=== PATIENT | male | born 1945 | race Hispanic/Latino ===

== ENCOUNTER → 2017-08-26 | Outpatient (CLI) | payer OTHER ==
[~2017-08-26] VITALS: Ht 175.3 cm; Wt 104.3 kg
[~2017-08-26] MED LIST: ASPI-1197 PO; ATEN25TA PO; ATOR40TA71 PO; FINA5TAB41 PO; ISOS30TA6 PO; LOSA25TA21 PO; METF500T6 PO; NASAL SPRAY NS; RANO10003 PO; REGADENOSON 0.4 MG/5 ML PF SYG IVP SCH; TAMS0.4C32 PO
== END | disposition home or self-care (01) ==
LOC: SHCH 12:13
PROVIDERS: ATTEND Internal Medicine Cardiovascular Disease
DX: I25.119 Atherosclerotic heart disease of native coronary artery with unspecified angina pectoris (principal)
CPT/HCPCS: 78452; 93017; 96374; A9500 ×2; J2785

== ENCOUNTER → 2018-05-25 | Outpatient (CLI) | payer OTHER ==
[~2018-05-25] MED LIST changes: +LOSA25TA16 PO; -LOSA25TA21 PO; +METF-444 PO; -METF500T6 PO; -REGADENOSON 0.4 MG/5 ML PF SYG IVP SCH
== END | disposition home or self-care (01) ==
LOC: RAH 09:57
PROVIDERS: ATTEND Emergency Medicine Emergency Medical Services
DX: R13.10 Dysphagia, unspecified (principal); Z79.899 Other long term (current) drug therapy; Z72.89 Other problems related to lifestyle
CPT/HCPCS: 74230; 92611; G8996; G8997; G8998

== ENCOUNTER → 2020-06-24 | Outpatient (CLI) | payer OTHER ==
[~2020-06-24] MED LIST changes: -LOSA25TA16 PO; +LOSA25TA41 PO; +REGADENOSON 0.4 MG/5 ML PF SYG IVP SCH
== END | disposition home or self-care (01) ==
LOC: SHCH 08:21
PROVIDERS: ATTEND Internal Medicine Cardiovascular Disease
DX: I25.10 Atherosclerotic heart disease of native coronary artery without angina pectoris (principal)
CPT/HCPCS: 78452; 93017; 96374; A9500 ×2; J2785

== ENCOUNTER 2020-08-20 05:50 | Day surgery (SDC) | payer OTHER ==
[2020-08-16 10:59] LABS: BASOPHILS % (AUTO) 0.2 % (0.0-5.0); HEMATOCRIT 36.3 % (42-54); LYMPHOCYTES % (AUTO) 30.6 % (21.0-51.0); MEAN CORPUSCULAR HEMOGLOBIN 30.8 pg (27.0-33.0); MEAN CORPUSCULAR HGB CONC 33.3 g/dL (32.0-36.0); MEAN CORPUSCULAR VOLUME 92.4 fL (79-99); MONOCYTES % (AUTO) 5.6 % (3.0-13.0); NEUTROPHILS % (AUTO) 62.1 % (40.0-77.0); PLATELET COUNT (AUTO) 162 K/uL (130-400); RED BLOOD CELL COUNT(AUTO) 3.93 MIL/uL (4.50-6.20); RED CELL DISTRIBUTION WIDTH 12.1 % (11.0-15.5); WHITE BLOOD COUNT (AUTO) 5.9 K/uL (4.8-10.8)
[2020-08-16 11:14] LABS: POTASSIUM 4.4 mmol/L (3.5-5.1)
[2020-08-16 11:15] LABS: APPEARANCE,URINE Turbid (CLEAR); BILIRUBIN,URINE Small (NEGATIVE); COLOR,URINE Dark Yellow (YELLOW); GLUCOSE, URINE (UA) TRACE mg/dL (NEGATIVE); KETONES,URINE Trace mg/dL (NEGATIVE); LEUKOCYTE ESTERASE ,URINE Trace (NEGATIVE); NITRATE,URINE Negative (NEGATIVE); OCCULT BLOOD,URINE Negative (NEGATIVE); PH,URINE 5.5 (5.0-8.0); PROTEIN,URINE Trace mg/dL (NEGATIVE)
[2020-08-16 11:39] LABS: RBC,URINE 0-1 /HPF (0-1)
[2020-08-16 11:40] LABS: AMORPHOUS SEDIMENT,UR Moderate /LPF (None Seen); BACTERIA,URINE Few /HPF (None Seen); SQUAMOUS EPITHELIAL CELL,UR Rare /HPF (0-2)
[2020-08-16 11:51] LABS: INR 1.08 (0.85-1.15); PROTHROMBIN TIME 11.7 SEC (9.6-11.6)
[2020-08-16 11:52] LABS: PARTIAL THROMBOPLASTIN TIME 25.9 SEC (26.3-35.5)
[2020-08-19 10:42] VITALS: BP 138/66
[~2020-08-20] VITALS: Ht 177.8 cm; Wt 95.0 kg
[2020-08-20] VITALS (10 sets, daily range): BP systolic 102–138; BP diastolic 53–59
[~2020-08-20 05:50] MED LIST changes: +0.9% NACL 500ML IV.SOLN 500 ML IV SCH; -ATEN25TA PO; +FERR-82 PO; -ISOS30TA6 PO; +MVI PO; -NASAL SPRAY NS; +PANT40TA54 PO; -REGADENOSON 0.4 MG/5 ML PF SYG IVP SCH
[2020-08-20] MEDS ORDERED: IOHEXOL-350 50ML VIAL IV ONE (07:07)
[2020-08-20] MEDS ORDERED: LIDOCAINE HCL 400MG/20ML VIAL ONE (07:07)
[2020-08-20] MEDS ORDERED: IOHEXOL 350 MG/ML 100ML INFUS..BTL IV ONE (07:07)
[2020-08-20] MEDS ORDERED: NITROGLYCERIN 2 MG VIAL IV ONE (07:07)
[2020-08-20] MEDS ORDERED: HEPARIN 10,000 UNIT/10ML (1,000 UNIT/ML) VIAL ONE (07:07)
[2020-08-20] MEDS ORDERED: 0.9%NACL 1000ML 1,000 ML IV ONE (07:15)
[2020-08-20] MEDS ORDERED: MIDAZOLAM HCL 1 MG/ML 2ML VIAL ONE (07:25)
[2020-08-20] MEDS ORDERED: HYDRALAZINE 20MG/ML VIAL ONE (07:34)
[2020-08-20] MEDS ORDERED: DEXTROSE 50%-WATER 50 ML DISP.SYRIN IV PRN (08:15)
[2020-08-20] MEDS ORDERED: GLUCAGON 1MG KIT 1 MG ML IM PRN (08:15)
== END 2020-08-20 12:00 | disposition home or self-care (01) ==
LOC: DAH 05:50
PROVIDERS: ATTEND Internal Medicine Cardiovascular Disease
DX: I25.119 Atherosclerotic heart disease of native coronary artery with unspecified angina pectoris (principal); I25.719 Atherosclerosis of autologous vein coronary artery bypass graft(s) with unspecified angina pectoris; I25.82 Chronic total occlusion of coronary artery; E78.5 Hyperlipidemia, unspecified; E11.9 Type 2 diabetes mellitus without complications; K21.9 Gastro-esophageal reflux disease without esophagitis; G47.33 Obstructive sleep apnea (adult) (pediatric); Z95.1 Presence of aortocoronary bypass graft; Z79.01 Long term (current) use of anticoagulants; Z79.82 Long term (current) use of aspirin; Z79.84 Long term (current) use of oral hypoglycemic drugs; Z95.5 Presence of coronary angioplasty implant and graft; Z90.49 Acquired absence of other specified parts of digestive tract; Z98.890 Other specified postprocedural states; Z98.41 Cataract extraction status, right eye; Z80.9 Family history of malignant neoplasm, unspecified; Z82.49 Family history of ischemic heart disease and other diseases of the circulatory system; Z83.3 Family history of diabetes mellitus
CPT/HCPCS: 36415; 71045; 80048; 81001; 82948 ×2; 85025; 85610; 85730; 93005; 93459; A4215; A4216; A4221; A4222; A4223 ×3; A4606; A4663; C1760; C1894; J0360; J1644; J2250; J3490 ×2; J7030; Q9965; Q9967 ×2; 99156; 99157

== ENCOUNTER → 2021-12-19 | Outpatient (CLI) | payer OTHER ==
[~2021-12-19] VITALS: Ht 175.3 cm; Wt 99.0 kg
[~2021-12-19] MED LIST changes: -0.9% NACL 500ML IV.SOLN 500 ML IV SCH; +ATOR-2 PO; +CEFAZOLIN SODIUM 1 GM VIAL IVP SCH; +FOLI1 PO; +ISOS30TA92 PO; +LOSA100T58 PO; +METF-446 PO; +METO25TA6 PO; +MULT-1367 PO; +PRAS10TA9 PO
[2021-12-19 10:56] LABS: BASOPHILS % (AUTO) 0.2 % (0.0-5.0); EOSINOPHILS % (AUTO) 0.8 % (0.0-8.0); HEMATOCRIT 34.3 % (42-54); LYMPHOCYTES % (AUTO) 28.5 % (21.0-51.0); MEAN CORPUSCULAR HGB CONC 33.8 g/dL (32.0-36.0); MEAN CORPUSCULAR VOLUME 91.7 fL (79-99); MONOCYTES % (AUTO) 6.1 % (3.0-13.0); NEUTROPHILS % (AUTO) 63.6 % (40.0-77.0); PLATELET COUNT (AUTO) 128 K/uL (130-400); RED BLOOD CELL COUNT(AUTO) 3.74 MIL/uL (4.50-6.20); RED CELL DISTRIBUTION WIDTH 12.6 % (11.0-15.5); WHITE BLOOD COUNT (AUTO) 4.7 K/uL (4.8-10.8)
[2021-12-19 11:22] LABS: APPEARANCE,URINE Clear (CLEAR); BILIRUBIN,URINE Negative (NEGATIVE); COLOR,URINE Yellow (YELLOW); GLUCOSE, URINE (UA) Negative (NEGATIVE); KETONES,URINE Negative (NEGATIVE); LEUKOCYTE ESTERASE ,URINE Negative (NEGATIVE); NITRATE,URINE Negative (NEGATIVE); OCCULT BLOOD,URINE Negative (NEGATIVE); PH,URINE 6.5 (5.0-8.0); PROTEIN,URINE Trace mg/dL (NEGATIVE)
[2021-12-19 11:32] LABS: CREATININE 1.2 mg/dL (0.5-1.5); POTASSIUM 4.3 mmol/L (3.5-5.1)
[2021-12-19 11:33] LABS: BACTERIA,URINE Rare /HPF (None Seen); RBC,URINE 0-1 /HPF (0-1); SQUAMOUS EPITHELIAL CELL,UR Rare /HPF (0-2); WBC,URINE 0-1 /HPF (0-1)
[2021-12-19 11:38] LABS: PROTHROMBIN TIME 10.9 SEC (9.6-11.6)
[2021-12-19 15:49] VITALS: BP 130/60
== END | disposition home or self-care (01) ==
LOC: LAB 08:00 → EDSTATUS 12:00
PROVIDERS: ATTEND Orthopaedic Surgery
DX: Z01.812 Encounter for preprocedural laboratory examination (principal); M17.12 Unilateral primary osteoarthritis, left knee; G89.29 Other chronic pain; I25.10 Atherosclerotic heart disease of native coronary artery without angina pectoris; M25.562 Pain in left knee; Z20.822 Contact with and (suspected) exposure to COVID-19; Z79.899 Other long term (current) drug therapy
CPT/HCPCS: 36415; 80048; 81001; 85025; 85610; 87088; 87426; 87641; J0690

== ENCOUNTER 2021-12-30 07:30 | Inpatient (IN) | payer OTHER ==
[~2021-12-30] VITALS: Ht 177.8 cm; Wt 100.2 kg
[~2021-12-30 07:30] MED LIST changes: -ATOR40TA71 PO; -CEFAZOLIN SODIUM 1 GM VIAL IVP SCH; -LOSA25TA41 PO; -METF-444 PO; -MVI PO
[2021-12-31 16:42] VITALS: BP 111/53
[2022-01-01] VITALS (22 sets, daily range): BP systolic 133–179; BP diastolic 54–75
[2022-01-01] MEDS ORDERED: CEFAZOLIN SODIUM 1 GM VIAL IVP ONE (08:00)
[2022-01-01] MEDS ORDERED: 0.9%NACL 1000ML 1,000 ML IV ONE (08:31)
[2022-01-01] MEDS ORDERED: ACETAMINOPHEN 500 MG TABLET ONE (12:06)
[2022-01-01] MEDS ORDERED: KETOROLAC 15MG/ML VIAL (15MG/ML) ONE (12:07)
[2022-01-01] MEDS ORDERED: CELECOXIB 200 MG CAP ONE (12:07)
[2022-01-01] MEDS ORDERED: CEFAZOLIN SODIUM 1 GM VIAL ONE (12:48)
[2022-01-01] MEDS ORDERED: LIDOCAINE PF 100MG/5ML (2%) SYRINGE 5ML ONE (13:15)
[2022-01-01] MEDS ORDERED: SUCCINYLCHOLINE CHLORIDE 20 MG/ML 10 ML VIAL ONE ×2 (13:15→13:16)
[2022-01-01] MEDS ORDERED: SUCCINYLCHOLINE 200MG/10ML SYR ONE (13:15)
[2022-01-01] MEDS ORDERED: FENTANYL CITRATE PF 50 MCG/1 ML 2ML VIAL ONE (13:16)
[2022-01-01] MEDS ORDERED: ROCURONIUM 10MG/1ML SYR 10 MG/ML ML ONE ×2 (13:16→14:08)
[2022-01-01] MEDS ORDERED: PROPOFOL 10 MG/ML 20ML VIAL IV ONE (13:16)
[2022-01-01] MEDS ORDERED: NEOSTIGMINE 5MG/5ML SYR IV ONE (13:16)
[2022-01-01] MEDS ORDERED: ATROPINE 1MG SYG IVP ONE (13:21)
[2022-01-01] MEDS ORDERED: FERROUS FUMARATE 324 MG TABLET PO PRN (15:30)
[2022-01-01] MEDS ORDERED: KCL 20 MEQ ERTAB PO PRN (15:30)
[2022-01-01] MEDS ORDERED: OXYCODONE HCL 5 MG TAB PO PRN (15:30)
[2022-01-01] MEDS ORDERED: POTASSIUM CHLORIDE 20MEQ/100ML 100 ML IV PRN (15:30)
[2022-01-01] MEDS ORDERED: CALCIUM CARB 500MG PO PRN (15:30)
[2022-01-01] MEDS ORDERED: POTASSIUM CHLORIDE 10% ELIXIR 20 MEQ/15 ML UDCUP PO PRN (15:30)
[2022-01-01] MEDS ORDERED: ONDANSETRON 4MG INJ IVP PRN (15:30)
[2022-01-01] MEDS ORDERED: LIDOCAINE HCL-MPF 1% 2ML VIAL IV PRN (15:30)
[2022-01-01] MEDS ORDERED: TRAMADOL HCL 50 MG TABLET PO PRN (15:30)
[2022-01-01] MEDS ORDERED: DiphenhydrAMINE HCL 50 MG/ML VIAL IVP PRN (15:30)
[2022-01-01] MEDS ORDERED: MEPERIDINE-PF 25 MG/ML SYG ONE ×3 (15:45→16:40)
[2022-01-01] MEDS ORDERED: EPHEDRINE SULFATE 50 MG/ML AMPULE ONE (15:52)
[2022-01-01] MEDS ORDERED: KETOROLAC 30MG VIAL (30MG/ML) ONE (15:57)
[2022-01-01] MEDS: INSULIN HUMULIN R 100 UNIT/ML 3ML SQ SCH ×2 (16:30→20:40)
[2022-01-01] MEDS: 0.9%NACL 1000ML 1,000 ML IV SCH (17:42)
[2022-01-01] MEDS: ACETAMINOPHEN 500 MG TABLET PO SCH ×2 (17:46→19:12)
[2022-01-01] MEDS: RANOLAZINE 500 MG TAB.SR.12H PO SCH (20:27)
[2022-01-01] MEDS: ATORVASTATIN 40 MG TABLET PO SCH (20:27)
[2022-01-01] MEDS: FAMOTIDINE 20MG TAB PO SCH (20:28)
[2022-01-01] MEDS: PREGABALIN 25 MG CAP PO SCH (20:28)
[2022-01-01] MEDS: CELECOXIB 200 MG CAP PO SCH (20:28)
[2022-01-01] MEDS: FINASTERIDE 5 MG TABLET PO SCH (20:28)
[2022-01-01] MEDS: ASPIRIN 81 MG EC TAB PO SCH (20:28)
[2022-01-01] MEDS: ISOSORBIDE MONO 30MG SR TAB PO SCH (20:28)
[2022-01-01] MEDS: METOPROLOL TARTRATE 25 MG TAB PO SCH (20:28)
[2022-01-01] MEDS: TAMSULOSIN HCL 0.4 MG CAP.ER.24H PO SCH (20:28)
[2022-01-01] MEDS: CEFAZOLIN SODIUM 1 GM VIAL IVP SCH (20:29)
[2022-01-01] MEDS: OXYCODONE HCL 5 MG TAB PO PRN (20:33)
[2022-01-02] MEDS: KETOROLAC 15MG/ML VIAL (15MG/ML) IV PRN ×2 (00:22→20:05)
[2022-01-02] MEDS: 0.9%NACL 1000ML 1,000 ML IV SCH ×2 (01:11→11:30)
[2022-01-02] MEDS: CEFAZOLIN SODIUM 1 GM VIAL IVP SCH (03:32)
[2022-01-02] MEDS: OXYCODONE HCL 5 MG TAB PO PRN ×2 (03:38→10:29)
[2022-01-02] MEDS: ACETAMINOPHEN 500 MG TABLET PO SCH ×3 (03:38→23:38)
[2022-01-02 04:10] VITALS: BP 123/51
[2022-01-02 04:31] LABS: HEMATOCRIT 26.2 % (42-54); MEAN CORPUSCULAR HEMOGLOBIN 30.9 pg (27.0-33.0); MEAN CORPUSCULAR HGB CONC 33.6 g/dL (32.0-36.0); MEAN CORPUSCULAR VOLUME 91.9 fL (79-99); RED BLOOD CELL COUNT(AUTO) 2.85 MIL/uL (4.50-6.20); RED CELL DISTRIBUTION WIDTH 12.8 % (11.0-15.5); WHITE BLOOD COUNT (AUTO) 5.7 K/uL (4.8-10.8)
[2022-01-02 05:02] LABS: CREATININE 1.3 mg/dL (0.5-1.5); POTASSIUM 4.4 mmol/L (3.5-5.1)
[2022-01-02] MEDS: INSULIN HUMULIN R 100 UNIT/ML 3ML SQ SCH ×4 (06:45→20:06)
[2022-01-02 08:00] VITALS: BP 131/48
[2022-01-02] MEDS ORDERED: TAMSULOSIN HCL 0.4 MG CAP.ER.24H PO SCH (09:00)
[2022-01-02] MEDS: FERROUS SULFATE 325 MG TABLET.DR PO SCH (09:23)
[2022-01-02] MEDS: PRASUGREL HCL 10 MG TABLET PO SCH (09:23)
[2022-01-02] MEDS: METFORMIN HCL 500 MG TAB.SR.24H PO SCH (09:23)
[2022-01-02] MEDS: LOSARTAN 100 MG TABLET PO SCH (09:23)
[2022-01-02] MEDS: PANTOPRAZOLE 40 MG TAB DR PO SCH (09:23)
[2022-01-02] MEDS: FOLIC ACID 1 MG TABLET PO SCH (09:23)
[2022-01-02] MEDS: ASPIRIN 81 MG EC TAB PO SCH ×2 (09:23→20:01)
[2022-01-02] MEDS: MULTIVITAMIN TABLET PO SCH (09:23)
[2022-01-02] MEDS: PREGABALIN 25 MG CAP PO SCH ×2 (09:23→20:01)
[2022-01-02] MEDS: METOPROLOL TARTRATE 25 MG TAB PO SCH ×2 (09:23→20:01)
[2022-01-02] MEDS: FAMOTIDINE 20MG TAB PO SCH ×2 (09:23→20:01)
[2022-01-02] MEDS: RANOLAZINE 500 MG TAB.SR.12H PO SCH ×2 (09:23→20:01)
[2022-01-02] MEDS: CELECOXIB 200 MG CAP PO SCH ×2 (09:23→20:01)
[2022-01-02] MEDS: POLYETHYLENE GLYCOL 3350 17 GM POWD.PACK PO SCH (09:24)
[2022-01-02 12:00] VITALS: BP 106/46
[2022-01-02 16:00] VITALS: BP 153/58
[2022-01-02 20:00] VITALS: BP 161/67
[2022-01-02] MEDS: TAMSULOSIN HCL 0.4 MG CAP.ER.24H PO SCH (20:01)
[2022-01-02] MEDS: FINASTERIDE 5 MG TABLET PO SCH (20:01)
[2022-01-02] MEDS: ATORVASTATIN 40 MG TABLET PO SCH (20:01)
[2022-01-02] MEDS: ISOSORBIDE MONO 30MG SR TAB PO SCH (20:02)
[2022-01-02 23:47] VITALS: BP 139/51
[2022-01-03 04:00] VITALS: BP 116/55
[2022-01-03] MEDS: INSULIN HUMULIN R 100 UNIT/ML 3ML SQ SCH ×4 (06:09→21:00)
[2022-01-03] MEDS: ACETAMINOPHEN 500 MG TABLET PO SCH ×3 (06:11→23:17)
[2022-01-03 07:37] VITALS: BP 105/40
[2022-01-03] MEDS: RANOLAZINE 500 MG TAB.SR.12H PO SCH ×2 (08:39→20:59)
[2022-01-03] MEDS: PANTOPRAZOLE 40 MG TAB DR PO SCH (08:40)
[2022-01-03] MEDS: FOLIC ACID 1 MG TABLET PO SCH (08:40)
[2022-01-03] MEDS: MULTIVITAMIN TABLET PO SCH (08:40)
[2022-01-03] MEDS: PREGABALIN 25 MG CAP PO SCH ×2 (08:40→21:00)
[2022-01-03] MEDS: LOSARTAN 100 MG TABLET PO SCH (08:40)
[2022-01-03] MEDS: FAMOTIDINE 20MG TAB PO SCH ×2 (08:40→21:00)
[2022-01-03] MEDS: ASPIRIN 81 MG EC TAB PO SCH ×2 (08:40→21:01)
[2022-01-03] MEDS: METFORMIN HCL 500 MG TAB.SR.24H PO SCH (08:40)
[2022-01-03] MEDS: METOPROLOL TARTRATE 25 MG TAB PO SCH ×2 (08:41→21:00)
[2022-01-03] MEDS: CELECOXIB 200 MG CAP PO SCH ×2 (08:41→20:59)
[2022-01-03] MEDS: POLYETHYLENE GLYCOL 3350 17 GM POWD.PACK PO SCH (08:41)
[2022-01-03] MEDS: FERROUS SULFATE 325 MG TABLET.DR PO SCH (08:41)
[2022-01-03 10:57] VITALS: BP 114/49
[2022-01-03] MEDS: PRASUGREL HCL 10 MG TABLET PO SCH (12:23)
[2022-01-03 15:44] VITALS: BP 102/56
[2022-01-03] MEDS ORDERED: LACTULOSE 20 GM/30 ML UDCUP PO PRN (20:00)
[2022-01-03 20:47] VITALS: BP 167/64
[2022-01-03] MEDS: FINASTERIDE 5 MG TABLET PO SCH (20:59)
[2022-01-03] MEDS: TAMSULOSIN HCL 0.4 MG CAP.ER.24H PO SCH (20:59)
[2022-01-03] MEDS: ISOSORBIDE MONO 30MG SR TAB PO SCH (21:00)
[2022-01-03] MEDS: ATORVASTATIN 40 MG TABLET PO SCH (21:00)
[2022-01-04] VITALS (7 sets, daily range): BP systolic 102–152; BP diastolic 40–66
[2022-01-04] MEDS: ACETAMINOPHEN 500 MG TABLET PO SCH ×2 (06:05→15:21)
[2022-01-04] MEDS: INSULIN HUMULIN R 100 UNIT/ML 3ML SQ SCH ×4 (06:22→21:00)
[2022-01-04] MEDS: PRASUGREL HCL 10 MG TABLET PO SCH (09:31)
[2022-01-04] MEDS: PREGABALIN 25 MG CAP PO SCH ×2 (09:31→21:35)
[2022-01-04] MEDS: ASPIRIN 81 MG EC TAB PO SCH ×2 (09:31→21:34)
[2022-01-04] MEDS: FOLIC ACID 1 MG TABLET PO SCH (09:31)
[2022-01-04] MEDS: POLYETHYLENE GLYCOL 3350 17 GM POWD.PACK PO SCH (09:31)
[2022-01-04] MEDS: METFORMIN HCL 500 MG TAB.SR.24H PO SCH (09:31)
[2022-01-04] MEDS: PANTOPRAZOLE 40 MG TAB DR PO SCH (09:32)
[2022-01-04] MEDS: FAMOTIDINE 20MG TAB PO SCH ×2 (09:32→21:35)
[2022-01-04] MEDS: FERROUS SULFATE 325 MG TABLET.DR PO SCH (09:32)
[2022-01-04] MEDS: CELECOXIB 200 MG CAP PO SCH ×2 (09:32→21:35)
[2022-01-04] MEDS: RANOLAZINE 500 MG TAB.SR.12H PO SCH ×2 (09:32→21:35)
[2022-01-04] MEDS: METOPROLOL TARTRATE 25 MG TAB PO SCH ×2 (09:32→21:00)
[2022-01-04] MEDS: MULTIVITAMIN TABLET PO SCH (09:32)
[2022-01-04] MEDS: LOSARTAN 100 MG TABLET PO SCH (09:32)
[2022-01-04] MEDS ORDERED: BISACODYL 10 MG SUPP.RECT RC PRN (15:30)
[2022-01-04] MEDS: ATORVASTATIN 40 MG TABLET PO SCH (21:34)
[2022-01-04] MEDS: ISOSORBIDE MONO 30MG SR TAB PO SCH (21:34)
[2022-01-04] MEDS: FINASTERIDE 5 MG TABLET PO SCH (21:35)
[2022-01-04] MEDS: TAMSULOSIN HCL 0.4 MG CAP.ER.24H PO SCH (21:35)
[2022-01-05] MEDS: ACETAMINOPHEN 500 MG TABLET PO SCH ×4 (00:11→23:57)
[2022-01-05 04:44] VITALS: BP 114/57
[2022-01-05] MEDS: INSULIN HUMULIN R 100 UNIT/ML 3ML SQ SCH ×4 (06:27→20:41)
[2022-01-05 08:00] VITALS: BP 120/60
[2022-01-05] MEDS: METOPROLOL TARTRATE 25 MG TAB PO SCH ×2 (09:35→20:29)
[2022-01-05] MEDS: FAMOTIDINE 20MG TAB PO SCH ×2 (09:35→20:29)
[2022-01-05] MEDS: MULTIVITAMIN TABLET PO SCH (09:35)
[2022-01-05] MEDS: POLYETHYLENE GLYCOL 3350 17 GM POWD.PACK PO SCH (09:35)
[2022-01-05] MEDS: METFORMIN HCL 500 MG TAB.SR.24H PO SCH (09:35)
[2022-01-05] MEDS: FERROUS SULFATE 325 MG TABLET.DR PO SCH (09:35)
[2022-01-05] MEDS: ASPIRIN 81 MG EC TAB PO SCH ×2 (09:35→20:27)
[2022-01-05] MEDS: LOSARTAN 100 MG TABLET PO SCH (09:35)
[2022-01-05] MEDS: PRASUGREL HCL 10 MG TABLET PO SCH (09:35)
[2022-01-05] MEDS: PREGABALIN 25 MG CAP PO SCH ×2 (09:36→20:29)
[2022-01-05] MEDS: FOLIC ACID 1 MG TABLET PO SCH (09:36)
[2022-01-05] MEDS: PANTOPRAZOLE 40 MG TAB DR PO SCH (09:36)
[2022-01-05] MEDS: CELECOXIB 200 MG CAP PO SCH ×2 (09:36→20:28)
[2022-01-05] MEDS: RANOLAZINE 500 MG TAB.SR.12H PO SCH ×2 (09:36→20:30)
[2022-01-05 12:00] VITALS: BP 121/72
[2022-01-05 16:00] VITALS: BP 141/61
[2022-01-05 20:14] VITALS: BP 127/60
[2022-01-05] MEDS: ISOSORBIDE MONO 30MG SR TAB PO SCH (20:28)
[2022-01-05] MEDS: FINASTERIDE 5 MG TABLET PO SCH (20:30)
[2022-01-05] MEDS: TAMSULOSIN HCL 0.4 MG CAP.ER.24H PO SCH (20:33)
[2022-01-05] MEDS: ATORVASTATIN 40 MG TABLET PO SCH (20:33)
[2022-01-05 23:50] VITALS: BP 139/60
[2022-01-06 03:22] VITALS: BP 126/64
[2022-01-06] MEDS: INSULIN HUMULIN R 100 UNIT/ML 3ML SQ SCH ×3 (06:52→16:28)
[2022-01-06 08:00] VITALS: BP 123/57
[2022-01-06] MEDS: POLYETHYLENE GLYCOL 3350 17 GM POWD.PACK PO SCH (08:19)
[2022-01-06] MEDS: ASPIRIN 81 MG EC TAB PO SCH (08:19)
[2022-01-06] MEDS: METFORMIN HCL 500 MG TAB.SR.24H PO SCH (08:19)
[2022-01-06] MEDS: FOLIC ACID 1 MG TABLET PO SCH (08:19)
[2022-01-06] MEDS: METOPROLOL TARTRATE 25 MG TAB PO SCH (08:19)
[2022-01-06] MEDS: PREGABALIN 25 MG CAP PO SCH (08:19)
[2022-01-06] MEDS: RANOLAZINE 500 MG TAB.SR.12H PO SCH (08:19)
[2022-01-06] MEDS: FERROUS SULFATE 325 MG TABLET.DR PO SCH (08:20)
[2022-01-06] MEDS: MULTIVITAMIN TABLET PO SCH (08:20)
[2022-01-06] MEDS: LOSARTAN 100 MG TABLET PO SCH (08:20)
[2022-01-06] MEDS: PANTOPRAZOLE 40 MG TAB DR PO SCH (08:20)
[2022-01-06] MEDS: CELECOXIB 200 MG CAP PO SCH (08:20)
[2022-01-06] MEDS: ACETAMINOPHEN 500 MG TABLET PO SCH ×2 (08:20→15:56)
[2022-01-06] MEDS: FAMOTIDINE 20MG TAB PO SCH (08:21)
[2022-01-06] MEDS: PRASUGREL HCL 10 MG TABLET PO SCH (08:47)
[2022-01-06 11:48] VITALS: BP 119/51
[2022-01-06 16:13] VITALS: BP 123/55
[2022-01-06] MEDS ORDERED: ASPI-1197 PO (17:32)
[2022-01-06] MEDS ORDERED: HYDR-4060 PO (17:32)
== END 2022-01-06 18:50 | disposition home health service (06) | DRG 470 ==
LOC: DAHIP 01-01 07:54 → 4BH 01-01 16:47
PROVIDERS: ADMIT Orthopaedic Surgery; ATTEND Orthopaedic Surgery
PROC: 3E0T3BZ Introduction of Anesthetic Agent into Peripheral Nerves and Plexi, Percutaneous Approach (ICD-10-PCS; 2022-01-01)
PROC: 0SRD0J9 Replacement of Left Knee Joint with Synthetic Substitute, Cemented, Open Approach (ICD-10-PCS; principal; 2022-01-01 13:14)
DX: M17.12 Unilateral primary osteoarthritis, left knee (principal); E11.9 Type 2 diabetes mellitus without complications; E78.5 Hyperlipidemia, unspecified; I25.10 Atherosclerotic heart disease of native coronary artery without angina pectoris; G47.33 Obstructive sleep apnea (adult) (pediatric); K21.9 Gastro-esophageal reflux disease without esophagitis; N40.0 Benign prostatic hyperplasia without lower urinary tract symptoms; Z82.49 Family history of ischemic heart disease and other diseases of the circulatory system; Z83.3 Family history of diabetes mellitus; Z95.1 Presence of aortocoronary bypass graft; Z95.5 Presence of coronary angioplasty implant and graft; D64.89 Other specified anemias
CPT/HCPCS: 36415; 80048; 82948; 85027; 86850; 86900; 86901; 87426; 97039; G0378; J0330; J0461; J0690; J1200; J1885; J2001; J2175; J2704; J2710; J3010; J3490; J7030; J7120

== ENCOUNTER 2022-01-29 18:14 | Emergency (ER) | payer OTHER ==
[~2022-01-29] VITALS: Ht 172.7 cm; Wt 98.0 kg
[~2022-01-29 18:14] MED LIST changes: +HYDR-4060 PO
[2022-01-29 18:16] VITALS: BP 111/56
== END 2022-01-29 19:12 | disposition home or self-care (01) ==
LOC: EDH 18:14
DX: R60.0 Localized edema (principal); E11.9 Type 2 diabetes mellitus without complications; I10 Essential (primary) hypertension; I25.10 Atherosclerotic heart disease of native coronary artery without angina pectoris; K21.9 Gastro-esophageal reflux disease without esophagitis; Z79.84 Long term (current) use of oral hypoglycemic drugs; Z79.899 Other long term (current) drug therapy; Z88.8 Allergy status to other drugs, medicaments and biological substances; Z96.652 Presence of left artificial knee joint
CPT/HCPCS: 93971

== ENCOUNTER 2022-12-16 21:01 | Emergency (ER) | payer OTHER ==
[~2022-12-16] VITALS: Ht 175.3 cm; Wt 100.2 kg
[~2022-12-16 21:01] MED LIST changes: -LOSA100T58 PO; +LOSA100T59 PO
[2022-12-16] MEDS ORDERED: KETOROLAC 30MG VIAL (30MG/ML) IVP ONE (22:00)
[2022-12-16] MEDS ORDERED: FAMOTIDINE 20MG TAB PO ONE (22:00)
[2022-12-16] MEDS ORDERED: TAMSULOSIN HCL 0.4 MG CAP.ER.24H PO ONE (22:00)
[2022-12-16] MEDS ORDERED: 0.9%NACL 1000ML 1,000 ML IV ONE (22:00)
[2022-12-16 22:20] LABS: BASOPHILS % (AUTO) 0.2 % (0.0-5.0); EOSINOPHILS % (AUTO) 0.4 % (0.0-8.0); HEMATOCRIT 37.4 % (42-54); MEAN CORPUSCULAR HEMOGLOBIN 30.6 pg (27.0-33.0); MEAN CORPUSCULAR HGB CONC 32.9 g/dL (32.0-36.0); MONOCYTES % (AUTO) 6.2 % (3.0-13.0); NEUTROPHILS % (AUTO) 84.8 % (40.0-77.0); PLATELET COUNT (AUTO) 83 K/uL (130-400); RED BLOOD CELL COUNT(AUTO) 4.02 MIL/uL (4.50-6.20); RED CELL DISTRIBUTION WIDTH 12.1 % (11.0-15.5); WHITE BLOOD COUNT (AUTO) 8.9 K/uL (4.8-10.8)
[2022-12-16 22:28] LABS: CARBON DIOXIDE 23 mmol/L (21-32); CHLORIDE 101 mmol/L (101-111); CREATININE 1.5 mg/dL (0.5-1.5); GLOMERULAR FILTR. RATE CALC 48 mL/min (>90); GLUCOSE,RANDOM 143 mg/dL (70-105); POTASSIUM 4.8 mmol/L (3.5-5.1); SODIUM SERUM 134 mmol/L (136-145); UREA NITROGEN, BLOOD 25 mg/dL (7-18)
[2022-12-16 22:33] LABS: ALANINE AMINOTRANSFERASE 25 U/L (12-78); ALBUMIN 3.8 g/dL (3.5-5.0); ASPARTATE AMINOTRANSFERASE 18 U/L (10-37); TOTAL PROTEIN, SERUM 6.9 g/dL (6.0-8.3)
[2022-12-16 22:40] LABS: LIPASE < 50 U/L (114-286)
[2022-12-16 22:57] LABS: APPEARANCE,URINE CLEAR (CLEAR); BILIRUBIN,URINE NEGATIVE (NEGATIVE); COLOR,URINE YELLOW (YELLOW); GLUCOSE, URINE (UA) >=1000 mg/dL (NEGATIVE); KETONES,URINE NEGATIVE (NEGATIVE); LEUKOCYTE ESTERASE ,URINE 250 Leu/uL (NEGATIVE); NITRATE,URINE NEGATIVE (NEGATIVE); OCCULT BLOOD,URINE NEGATIVE (NEGATIVE); PH,URINE 5.5 (5.0-8.0); PROTEIN,URINE NEGATIVE (NEGATIVE); UROBILINOGEN,URINE 0.2 mg/dL (0.2-1.0)
[2022-12-16 23:04] LABS: SQUAMOUS EPITHELIAL CELL,UR RARE /HPF (0-2); WBC,URINE >100 /HPF (0-1)
[2022-12-16 23:22] VITALS: BP 150/74
[2022-12-17] MEDS ORDERED: TAMS-1 PO (00:54)
[2022-12-17] MEDS ORDERED: CEPH500B PO (00:54)
[2022-12-17] MEDS ORDERED: CEFTRIAXONE 2GM VIAL IVPB ONE (01:00)
== END 2022-12-17 01:13 | disposition home or self-care (01) ==
LOC: EDH 21:01
DX: N39.0 Urinary tract infection, site not specified (principal); I10 Essential (primary) hypertension; E78.00 Pure hypercholesterolemia, unspecified; E11.9 Type 2 diabetes mellitus without complications; Z88.8 Allergy status to other drugs, medicaments and biological substances; Z79.899 Other long term (current) drug therapy
CPT/HCPCS: 99285; 71045; 96361; 96375; 84484; 80053; 83690; 85025; 87077; 87088; 87186; 81001; 36415; 93005; 96365; J7030; J1885; J0696

== ENCOUNTER 2023-03-15 15:29 | Emergency (ER) | payer OTHER ==
[~2023-03-15] VITALS: Ht 175.3 cm; Wt 101.6 kg
[~2023-03-15 15:29] MED LIST changes: +CEPH500B PO; +TAMS-1 PO
[2023-03-15] MEDS ORDERED: CEPH500C2 PO (17:51)
[2023-03-15] MEDS ORDERED: TRAM-355 PO (17:51)
[2023-03-15] MEDS ORDERED: TRAMADOL /APAP 37.5MG/325MG TAB PO ONE (18:00)
[2023-03-15] MEDS ORDERED: CEPHALEXIN 500 MG CAPSULE PO ONE (18:00)
[2023-03-15 18:02] VITALS: BP 152/60; PULSE 58; RESP 16; O2SAT 97
== END 2023-03-15 18:29 | disposition home or self-care (01) ==
LOC: EDH 15:29
DX: S50.01XA Contusion of right elbow, initial encounter (principal); L03.113 Cellulitis of right upper limb; I10 Essential (primary) hypertension; E11.9 Type 2 diabetes mellitus without complications; E78.00 Pure hypercholesterolemia, unspecified; Z79.84 Long term (current) use of oral hypoglycemic drugs; Z79.899 Other long term (current) drug therapy; Z90.49 Acquired absence of other specified parts of digestive tract; Z95.1 Presence of aortocoronary bypass graft; Z95.5 Presence of coronary angioplasty implant and graft; Z88.8 Allergy status to other drugs, medicaments and biological substances; X58.XXXA Exposure to other specified factors, initial encounter; Y93.89 Activity, other specified; Y92.89 Other specified places as the place of occurrence of the external cause; Y99.8 Other external cause status
CPT/HCPCS: 73070; 73090

== ENCOUNTER → 2024-03-21 | Outpatient (CLI) | payer OTHER ==
[~2024-03-21] MED LIST changes: +CEPH500C2 PO; +TRAM-543 PO
[2024-03-21] MEDS: REGADENOSON 0.4 MG/5 ML PF SYG IVP ONE (10:52)
== END | disposition home or self-care (01) ==
LOC: SHCH 08:31
PROVIDERS: ATTEND Internal Medicine Cardiovascular Disease
DX: I51.7 Cardiomegaly (principal); I25.10 Atherosclerotic heart disease of native coronary artery without angina pectoris; R06.09 Other forms of dyspnea
CPT/HCPCS: 78452; 93017; J2785; A9500 ×2

== ENCOUNTER 2024-04-23 14:23 | Observation (INO) | payer OTHER ==
[~2024-04-23] VITALS: Ht 177.8 cm; Wt 104.8 kg
--- NOTE | 2024-04-23 14:45 | ERN ---
General Chief Complaint: Weakness Stated Complaint: weekness Time Seen by MD: 14:19 History of Present Illness Initial Comments 78-year-old male brought in by [facility] from home for weakness. According to the patient he has been in his normal state of health until about an hour prior to calling EMS. He reports sudden onset of very extreme weakness and fatigue. He reports that he is too weak to stand or walk. He denies any headaches, vision changes, sore throat, cough congestion, chest pains, diarrhea dysuria. He reports he has been in his normal state of health otherwise. EMS found his heart rate to be in the 40s, blood pressure 150/75, glucose 292. Medical history: Diabetes, hypertension, CABG PCP: MD Clay Machine Operator: Josef Allergies: Coded Allergies: iodine (Unverified Allergy, Unknown, 01/29/22) Home Meds Active Scripts Tramadol HCl/Acetaminophen (Tramadol-Acetaminophn 37.5-325) 37.5 Mg-325 Mg Tablet, 1 EACH PO [id number], #10 TAB 0 Refills Prov:JH MEJIA NP 03/15/23 Cephalexin (Cephalexin) 500 Mg Capsule, 500 MG PO BID for 7 Days, #14 CAP 0 Refills Prov:JH MEJIA NP 03/15/23 Tamsulosin HCl (Flomax) 0.4 Mg Cap.er.24h, 0.4 MG PO DAILYDINNER, #30 CAPSULE.DR 2 Refills Prov:BOOM LUGO Sr., MD 12/17/22 Cephalexin Monohydrate (Keflex) 500 Mg Cap, 500 MG PO QID for 10 Days, #40 CAP 0 Refills Prov:BOOM LUGO Sr., MD 12/17/22 Hydrocodone/Acetaminophen (Hydrocodon-Acetaminophen 5-325) 1 Each Tablet, 1-2 EACH PO Q6HPRN PRN for ACUTE POST-OP PAIN (G89.18), #56 TAB 0 Refills Prov:TOMEKA LANE MD 01/06/22 Aspirin (Aspirin) 81 Mg Tab.chew, 81 MG PO BID for DVT PROPHYLAXIS, #40 TAB.CHEW Prov:TOMEKA LANE MD 01/06/22 Reported Medications Metoprolol Tartrate (Metoprolol Tartrate) 25 Mg Tablet, 25 MG PO BID, TAB 12/19/21 Prasugrel HCl (Prasugrel HCl) 10 Mg Tablet, 10 MG PO DAILY, TAB 12/19/21 Losartan Potassium (Losartan Potassium) 100 Mg Tablet, 100 MG PO DAILY, TAB 12/19/21 Ferrous Sulfate (Iron) 325 Mg Tablet, 325 MG PO DAILY, TAB 12/19/21 Atorvastatin Calcium (Atorvastatin Calcium) 80 Mg Tablet, 80 MG PO HS, TAB 12/19/21 Metformin HCl (Metformin HCl) 1,000 Mg Tablet, 1000 MG PO DAILY, TAB 12/19/21 Multivitamin (Multivitamin) 1 Each Tablet, 1 EACH PO DAILY, TAB 12/19/21 Folic Acid (Folvite) 1 Mg Tab, 1 MG PO DAILY, TAB 12/19/21 Isosorbide Mononitrate (Isosorbide Mononitrate ER) 30 Mg Tab.er.24h, 30 MG PO HS, TAB 12/19/21 Pantoprazole Sodium (Pantoprazole Sodium) 40 Mg Tablet.dr, 40 MG PO DAILY, TAB 08/19/20 Ranolazine (Ranexa) 1,000 Mg Tab.er.12h, 1000 MG PO BID, TAB 02/08/17 Tamsulosin HCl (Tamsulosin HCl) 0.4 Mg Cap.er.24h, 0.4 MG PO HS, CAPSULE.DR 11/29/15 Finasteride (Finasteride) 5 Mg Tablet, 5 MG PO HS, TAB 11/29/15 Past Medical History Past Medical History: Diabetes-Type II, High Cholesterol, Heart Disease, Hypertension Past Surgical History: CABG, Other Surgical History Other: HEART STENTS Social History Social History: Negative, Lives with family, Other ROS Dictation CONSTITUTIONAL: Weakness and fatigue HEAD/FACE: No signs of trauma. EENT: No eye pain, no blurred vision, no tearing, no double vision, no ear pain, no ear discharge, no nose pain, no nasal congestion, no throat pain, no throat swelling, no mouth pain. RESPIRATORY: No cough, no orthopnea, no SOB, no stridor, no wheezing. CARDIOVASCULAR: No chest pain, no edema, no palpitations, no syncope. GASTROINTESTINAL/ABDOMINAL: No abdominal pain, no constipation, no diarrhea, no nausea, no vomiting. GENITOURINARY: No abnormal discharge, no dysuria, no frequent urination, no hematuria. No complaints of pain in the genitals. MUSCULOSKELETAL: No back pain, no gout, no joint pain, no joint swelling, no muscle pain, no muscle stiffness, no neck pain. INTEGUMENTARY: No change in color, no change in hair/nails, no dryness, no lesion, no lumps, no rash. NEUROLOGICAL/PSYCH: No anxiety, not depressed, no emotional problem, no headache, no numbness, no pre-existing deficit, no history of seizures, no tremors, no weakness. HEMATOLOGIC/LYMPHATIC: Not anemic, no history of blood clots, no apparent blee ding, no bruising, glands not swollen. All Systems Negative, Except as Noted. Physical Exam Physical Exam Dictation VITAL SIGNS: Reviewed. GENERAL APPEARANCE: Alert, oriented x3, no acute distress, obese. HEAD AND FACE: Non-traumatic. EYES: PERRL, pink conjunctivas, eyelid no trauma, anterior chamber clear. EARS: Pinnas intact and no signs of trauma or erythema. Ear canals clear and no discharge. TMs no erythema. NOSE: No discharge, no bleeding. OROPHARYNX: Mouth normal, teeth no caries, tongue pink. Pharynx clear, no erythema. Tonsils no exudates, no abscesses noted. Mucous membrane moist. NECK: Supple, non-tender, no thyromegaly, no masses, no JVD, no bruits. BREAST: Deferred. CHEST: No tenderness, no crepitus, no paradoxical movement, no retractions. LUNGS: Clear, well-ventilated, symmetric, no rales, no wheezing, no rhonchi, no stridor, good breath sounds bilaterally. HEART: Regular rate, regular rhythm, no murmur, no gallops. VASCULAR: No peripheral edema. ABDOMEN: Soft, positive bowel sounds, nondistended, no guarding, nontender, no rebound, no masses no hepatomegaly, no splenomegaly, no Rose's sign, no hernias. RECTAL: Deferred. GENITAL: Deferred. NEUROLOGICAL: Normal speech, gross motor function intact, gross sensory function intact. MUSCULOSKELETAL: Neck nontender, full range of motion, back nontender, full range of motion. EXTREMITIES: Nontender, full range of motion. SKIN: Color pink, dry, no turgor, no rash, no lacerations, no abrasions, no contusions. LYMPHATICS: Deferred. Results Laboratory and Microbiology Lab and Micro Result Laboratory Tests Test 04/23/24 15:16 04/23/24 15:19 04/23/24 15:50 Whole Blood Glucose 222 MG/DL (70-110) H Influenza Type A Antigen Negative For Type A Influenza Type B Antigen Negative For Type B SARS-CoV-2 Antigen (Rapid) PRESUMPTIVE NEGATIVE White Blood Count 6.2 K/uL (4.8-10.8) Red Blood Count 3.60 MIL/uL (4.50-6.20) L Hemoglobin 11.3 g/dL (14.0-18.0) L Hematocrit 32.7 % (42-54) L Mean Corpuscular Volume 90.8 fL (79-99) Mean Corpuscular Hemoglobin 31.4 pg (27.0-33.0) Mean Corpuscular Hemoglobin Concent 34.6 g/dL (32.0-36.0) Red Cell Distribution Width 11.9 % (11.0-15.5) Platelet Count 128 K/uL (130-400) L Mean Platelet Volume 10.1 fL (7.5-10.5) Immature Granulocyte % (Auto) 0.8 % (0-1) Neutrophils (%) (Auto) 80.5 % (40.0-77.0) H Lymphocytes (%) (Auto) 13.5 % (21.0-51.0) L Monocytes (%) (Auto) 4.7 % (3.0-13.0) Eosinophils (%) (Auto) 0.3 % (0.0-8.0) Basophils (%) (Auto) 0.2 % (0.0-5.0) Neutrophils # (Auto) 5.0 K/uL (1.8-7.7) Lymphocytes # (Auto) 0.8 K/uL (1.0-4.8) L Monocytes # (Auto) 0.3 K/uL (0.1-1.0) Eosinophils # (Auto) 0.02 K/uL (0.00-0.70) Basophils # (Auto) 0.01 K/uL (0.00-0.20) Absolute Immature Granulocyte (auto 0.05 K/uL (0-1) Nucleated Red Blood Cells 0.0 % (0.0-0.19) Prothrombin Time 11.6 SEC (9.6-11.6) Prothromb Time International Ratio 1.08 (0.85-1.15) Sodium Level 134 mmol/L (136-145) L Potassium Level 4.9 mmol/L (3.5-5.1) Chloride Level 100 mmol/L (101-111) L Carbon Dioxide Level 28 mmol/L (21-32) Blood Urea Nitrogen 21 mg/dL (7-18) H Creatinine 1.4 mg/dL (0.5-1.3) H Glomerular Filtration Rate Calc 52 mL/min (>90) Random Glucose 214 mg/dL (70-105) H Lactic Acid Level 2.1 mmol/L (0.8-2.5) Total Calcium 9.0 mg/dL (8.5-10.1) Magnesium Level 1.70 mg/dL (1.80-2.40) L Total Creatine Kinase 29 U/L (21-232) # Troponin I High Sensitivity 13 ng/L (4-75) B-Type Natriuretic Peptide 319 pg/mL (0-100) H Triglycerides Level 144 mg/dL (30-200) Cholesterol Level 160 mg/dL (<200) # LDL Cholesterol 67 mg/dL (0-99) HDL Cholesterol 71 mg/dL (29-71) MDM CC: sudden onset fatigue/weakness Historian: patient Comorbidities: advanced age, HTN, DM, CABG Differential diagnosis: ACS/cardiac disease, arrhythmia, sepsis, other EKG: AFib, rate 51, normal axis, good R-wave progression. No ST or T-wave changes. No STEMI. Interpreted by me. CXR: mild vascular congestion, no pleural effusion, borderline cardiomegally, CABG wires, no focal infiltrates per my independent interpretation Vital signs have shown some bradycardia ranging from 49-55. Other vital signs stable. Labs: No leukocytosis. Normocytic anemia. Left shift 80% neutrophils no bands. BMP shows mild dehydration. Elevated glucose. CK troponin stable. Coags stable Serology negative Patient received 1 L normal saline. We will admit for weakness. Consult: hospitalist for admission ED Course Orders Procedure Category Date Status Time Cbc With Differential LAB 04/23/24 Complete 14:27 Prothrombin Time With LAB 04/23/24 Complete INR 14:27 B-Type Natriuretic LAB 04/23/24 Complete Peptide 14:27 Lipid Panel LAB 04/23/24 Complete 14:27 Chest 1vw RAD 04/23/24 Resulted 14:27 12 Lead Ekg Tracing- EKG 04/23/24 Logged Technical 14:27 Lactated Ringers PHA 04/23/24 Complete 1000ml (Lactated 14:30 Magnesium LAB 04/23/24 Complete 14:27 Creatine Kinase, Total LAB 04/23/24 Complete 14:27 Troponin I High LAB 04/23/24 Complete Sensitivity 14:27 Urinalysis Profile LAB 04/23/24 Logged 14:27 Basic Metabolic Panel LAB 04/23/24 Complete 14:27 Lactic Acid LAB 04/23/24 Complete 14:27 Blood Cult CURTIS 04/23/24 In Process 14:27 Covid19 (Sars Antigen LAB 04/23/24 Complete Rapid) 14:47 Influenza Type A & B, LAB 04/23/24 Complete Rapid 14:47 Current Medications Medications (Trade) Dose Ordered Sig/Nicole Route PRN Reason Start Time Stop Time Status Last Admin Dose Admin Lactated Ringer's 1,000 ml @ 0 mls/hr ONCE ONCE IV 04/23/24 14:30 04/23/24 14:31 DC 04/23/24 15:13 Vital Signs Date Time Temp Pulse Resp B/P (MAP) Pulse Ox O2 Delivery O2 Flow Rate FiO2 04/23/24 16:47 55 18 137/62 98 Room Air* 0 04/23/24 15:01 98.1 52 18 154/49 96 Room Air* 0 04/23/24 14:25 98.4 49 18 150/75 98 Room Air DX & DISP Disposition: Inpatient Departure Impression: Primary Impression: Atrial fibrillation Additional Impressions: Weakness, CKD (chronic kidney disease), Dehydration Condition: Stable Referrals: MARIANNE LYMAN (PCP) NILSON MENESES DO Apr 23, 2024 14:45
[2024-04-23] MEDS: LACTATED RINGERS 1000ML 1,000 ML IV ONE (15:13)
--- NOTE | 2024-04-23 15:17 | HMCIMG ---
INDICATION: chest pain TECHNIQUE: CHEST 1VW COMPARISON: 12/16/2022 FINDINGS/IMPRESSION: Prominent bilateral interstitial markings which may represent bronchitis or vascular congestion in the proper clinical setting. Mild cardiomegaly with CABG changes. Mild degenerative changes of the spine. The visualized upper abdomen appears unremarkable.
[2024-04-23 15:59] LABS: COVID19 (SARS ANTIGEN RAPID) PRESUMPTIVE NEGATIVE (NEGATIVE); INFLUENZA TYPE A Negative For Type A (NEGATIVE); INFLUENZA TYPE B Negative For Type B (NEGATIVE)
[2024-04-23 16:08] LABS: BASOPHILS # (AUTO) 0.01 K/uL (0.00-0.20); BASOPHILS % (AUTO) 0.2 % (0.0-5.0); EOSINOPHILS # (AUTO) 0.02 K/uL (0.00-0.70); EOSINOPHILS % (AUTO) 0.3 % (0.0-8.0); HEMATOCRIT 32.7 % (42-54); IMMATURE GRANULOCYTE ABSOLUTE 0.05 K/uL (0-1); LYMPHOCYTES # (AUTO) 0.8 K/uL (1.0-4.8); LYMPHOCYTES % (AUTO) 13.5 % (21.0-51.0); MEAN CORPUSCULAR HEMOGLOBIN 31.4 pg (27.0-33.0); MEAN CORPUSCULAR HGB CONC 34.6 g/dL (32.0-36.0); MEAN CORPUSCULAR VOLUME 90.8 fL (79-99); MONOCYTES # (AUTO) 0.3 K/uL (0.1-1.0); MONOCYTES % (AUTO) 4.7 % (3.0-13.0); NEUTROPHILS % (AUTO) 80.5 % (40.0-77.0); PLATELET COUNT (AUTO) 128 K/uL (130-400); RED CELL DISTRIBUTION WIDTH 11.9 % (11.0-15.5); WHITE BLOOD COUNT (AUTO) 6.2 K/uL (4.8-10.8)
[2024-04-23 16:20] LABS: INR 1.08 (0.85-1.15); PROTHROMBIN TIME 11.6 SEC (9.6-11.6)
[2024-04-23 16:25] LABS: CREATININE 1.4 mg/dL (0.5-1.3); POTASSIUM 4.9 mmol/L (3.5-5.1)
[2024-04-23 16:27] LABS: B-TYPE NATRIURETIC PEPTIDE 319 pg/mL (0-100)
[2024-04-23 16:34] LABS: MAGNESIUM 1.7 mg/dL (1.80-2.40)
--- NOTE | 2024-04-23 17:51 | EKG ---
[facility] Test Date: 2024-04-23 Test Time: 14:36:31 Pat Name: TOMEKA ROMO Department: ED Room: 307 Gender: M Wash[employer] Worker: [id number] : 1945 Requested By: NILSON MENESES Order Number: [id number] Reading MD: Jason Blas Measurements Intervals [place] Rate: 51 P: 0 ME: 0 QRS: 17 QRSD: 108 T: 25 QT: 528 QTc: 484 Interpretive Statements Atrial fibrillation with slow ventricular rate Inferior infarct, old Compared to ECG 12/16/2022 23:14:38 Myocardial infarct finding now present Electronically Signed On 04-27-2024 18:33:20 [employer] EXPORT LOGISTICS MANAGER by Jason Blas Please click the below link to view image of tracing.
[2024-04-23 18:01] LABS: APPEARANCE,URINE CLEAR (CLEAR); BILIRUBIN,URINE NEGATIVE (NEGATIVE); COLOR,URINE YELLOW (YELLOW); GLUCOSE, URINE (UA) >=1000 mg/dL (NEGATIVE); KETONES,URINE NEGATIVE (NEGATIVE); LEUKOCYTE ESTERASE ,URINE NEGATIVE Leu/uL (NEGATIVE); NITRATE,URINE NEGATIVE (NEGATIVE); OCCULT BLOOD,URINE NEGATIVE (NEGATIVE); PH,URINE 5.5 (5.0-8.0)
[2024-04-23 18:02] LABS: ADD UA MICROSCOPIC YES; PROTEIN,URINE TRACE mg/dL (NEGATIVE)
[2024-04-23 18:03] LABS: BACTERIA,URINE RARE /HPF (None Seen); MUCUS,URINE RARE LPF (None Seen); RBC,URINE 0-1 /HPF (0-1); SQUAMOUS EPITHELIAL CELL,UR RARE /HPF (0-2)
[2024-04-23] MEDS ORDERED: METO-408 PO (18:10)
[2024-04-23] MEDS ORDERED: ATOR40TA71 PO (18:10)
[2024-04-23] MEDS ORDERED: METF-1150 PO (18:10)
[2024-04-23] MEDS ORDERED: LOSA50TA64 PO (18:10)
[2024-04-23] MEDS ORDERED: acetaMINOPHEN 325 MG TAB PO PRN (18:30)
[2024-04-23] MEDS ORDERED: HYDROcodone/APAP 5/325 1 TAB TABLET PO PRN (18:30)
[2024-04-23] MEDS ORDERED: acetaMINOPHEN 650 MG SUPPOSITORY RC PRN (18:30)
[2024-04-23] MEDS: LACTATED RINGERS 1000ML 1,000 ML IV SCH (20:30)
[2024-04-23] MEDS: hydrALAZine 20MG/ML VIAL IV PRN (20:31)
[2024-04-23] MEDS: INSULIN humuLIN R 100 UNIT/ML 3ML SQ SCH (20:50)
--- NOTE | 2024-04-23 20:59 | HP ---
[facility] HISTORY & PHYSICAL Date Patient Seen: Apr 23, 2024 Time of Visit: 20:58 Supervising Physician: Dr. Terry Acuña Primary Care Physician: Dr. Wade Outpatient Specialists: [ ] Inpatient Consults: [ ] PROBLEM LIST: Acute kidney injury, POA Status post fall, POA Generalized body weakness, POA Hyponatremia, POA Hypomagnesemia, POA Lactic acidosis, negative for COVID and flu Hypertension, POA Hyperlipidemia, POA DM type 2, POA History of CAD s/p CABG 1995 PLAN: Admit to medical-surgical floor with telemetry VS per unit protocol Continue IV fluids Complete bedrest for now Keep SBP less than 160 Avoid nephrotoxic agents Heart healthy diet Renally dose all medications Bilateral SCDs ISS and fingerstick per unit protocol Continue IV fluids CBC, CMP, magnesium level daily HPI: 78-year-old male with past medical history of CAD s/p CABG 1995, hypertension, hyperlipidemia, DM type 2, who presented to ED with complaint of generalized body weakness and fall at home and found to have acute kidney injury, hyponatremia, and hypomagnesemia. Patient was seen and examined in ED with present at bedside. According to him he has been having issues with weakness for the past days and today he had episodes of falling at home without hitting his head. Patient is currently on aspirin, denies any use of anticoagulation. Initial lab in ED is significant for creatinine level of 1.4, sodium level of 13 4, and magnesium level of 1.4. His CBC is unremarkable for any acute infection, chest x-ray did not reveal any acute infiltrates, COVID and flu tests are also negative. Afterwards patient was initiated on IV fluids in ED. At present patient is currently hemodynamically stable, GCS 1 , no focal weakness noted, afebrile. Denies any headache, chest pain, shortness of breath, fever, abdominal pain, difficulty urinating, or flu-like symptoms. Patient is ex-smoker, and former alcohol drinker. Denies any illicit drug use, vaccinated against COVID virus and his flu shot is up-to-date. PAST MEDICAL HX: See HPI PAST SURGICAL HX: CABG Left knee replacement SOCIAL HISTORY: See HPI Coded Allergies: iodine (Unverified Allergy, Unknown, 01/29/22) REVIEW OF SYSTEMS: 12 point ROS reviewed with patient. Pertinent positives mentioned above. Otherwise negative. PHYSICAL EXAM: GENERAL: alert, weak, awake oriented x 3 HEENT: EOMI, Sclera non icteric, moist mucosa NECK: Supple, no JVD, trachea midline LUNGS: Clear breath sounds bilaterally. No wheezes HEART: Regular rate and rhythm. Normal S1 and S2, without murmurs ABD: Abdomen soft, nontender. Bowel sounds present EXT: No clubbing cyanosis 1+ pitting edema bilateral lower extremity NEURO: Alert and oriented to person, follows commands Vital Signs (last 8hr) Date Time Temp Pulse Resp B/P (MAP) Pulse Ox O2 Delivery O2 Flow Rate FiO2 04/23/24 20:54 65 18 186/77 96 Room Air* 0 21 04/23/24 20:14 98.1 62 16 186/64 97 Room Air* 0 04/23/24 18:11 98.8 61 15 164/66 97 Room Air* 0 04/23/24 16:47 55 18 137/62 98 Room Air* 0 04/23/24 15:01 98.1 52 18 154/49 96 Room Air* 0 04/23/24 14:25 98.4 49 18 150/75 98 Room Air LABS: Hematology Labs: Test 04/23/24 15:50 Range/Units White Blood Count 6.2 4.8-10.8 K/uL Red Blood Count 3.60 L 4.50-6.20 MIL/uL Hemoglobin 11.3 L 14.0-18.0 g/dL Hematocrit 32.7 L 42-54 % Mean Corpuscular Volume 90.8 79-99 fL Mean Corpuscular Hemoglobin 31.4 27.0-33.0 pg Mean Corpuscular Hemoglobin Concent 34.6 32.0-36.0 g/dL Red Cell Distribution Width 11.9 11.0-15.5 % Platelet Count 128 L 130-400 K/uL Mean Platelet Volume 10.1 7.5-10.5 fL Immature Granulocyte % (Auto) 0.8 0-1 % Neutrophils (%) (Auto) 80.5 H 40.0-77.0 % Lymphocytes (%) (Auto) 13.5 L 21.0-51.0 % Monocytes (%) (Auto) 4.7 3.0-13.0 % Eosinophils (%) (Auto) 0.3 0.0-8.0 % Basophils (%) (Auto) 0.2 0.0-5.0 % Neutrophils # (Auto) 5.0 1.8-7.7 K/uL Lymphocytes # (Auto) 0.8 L 1.0-4.8 K/uL Monocytes # (Auto) 0.3 0.1-1.0 K/uL Eosinophils # (Auto) 0.02 0.00-0.70 K/uL Basophils # (Auto) 0.01 0.00-0.20 K/uL Absolute Immature Granulocyte (auto 0.05 0-1 K/uL Nucleated Red Blood Cells 0.0 0.0-0.19 % Chemistry Labs: Test 04/23/24 20:47 04/23/24 19:55 04/23/24 15:50 Range/Units Whole Blood Glucose 205 H 70-110 MG/DL Lactic Acid Level 3.1 H 0.8-2.5 mmol/L Sodium Level 134 L 136-145 mmol/L Potassium Level 4.9 3.5-5.1 mmol/L Chloride Level 100 L 101-111 mmol/L Carbon Dioxide Level 28 21-32 mmol/L Blood Urea Nitrogen 21 H 7-18 mg/dL Creatinine 1.4 H 0.5-1.3 mg/dL Glomerular Filtration Rate Calc 52 >90 mL/min Random Glucose 214 H 70-105 mg/dL Total Calcium 9.0 8.5-10.1 mg/dL Magnesium Level 1.70 L 1.80-2.40 mg/dL Total Creatine Kinase 29 # 21-232 U/L Troponin I High Sensitivity 13 4-75 ng/L B-Type Natriuretic Peptide 319 H 0-100 pg/mL Triglycerides Level 144 30-200 mg/dL Cholesterol Level 160 # <200 mg/dL LDL Cholesterol 67 0-99 mg/dL HDL Cholesterol 71 29-71 mg/dL Coagulation Labs: Test 04/23/24 15:50 Range/Units Prothrombin Time 11.6 9.6-11.6 SEC Prothromb Time International Ratio 1.08 0.85-1.15 DIAGNOSTICS / RADIOLOGY RESULTS: INDICATION: chest pain TECHNIQUE: CHEST 1VW COMPARISON: 12/16/2022 FINDINGS/IMPRESSION: Prominent bilateral interstitial markings which may represent bronchitis or vascular congestion in the proper clinical setting. Mild cardiomegaly with CABG changes. Mild degenerative changes of the spine. The visualized upper abdomen appears unremarkable. PLAN NEURO: Minimize central acting medications as possible. Maintain fall precautions, adequate lighting during the day PULMONARY: Supplemental 02 as needed. Maintain aspiration precautions at all times CARDIOVASCULAR: Follow hemodynamics. Vital signs per facility protocol GI & NUTRITION: Continue with nutritional support. Continue stool softeners and laxatives as needed. KIDNEYS & ELECTROLYTES: Strict monitoring of intake, output and overall fluid balance. Avoid nephrotoxic medications to the extent possible. Medications to be dosed according to renal function. Monitor electrolytes and replace as needed ENDOCRINE: Maintain blood glucose between 100-180 at all times. Hypoglycemia protocol in place INFECTIOUS DISEASE: Trend temperature, WBC and procalcitonin level Follow cultures, deescalate antibiotics as soon as possible. Panculture if new onset fever ONCOLOGY/HEMATOLOGY/COAGULATION: Monitor for s/s of bleeding Monitor hemoglobin, coagulation studies as needed SKIN: Pressure ulcer prevention per facility protocol Specialty mattress ORTHO/REHAB: Continue PT/OT Prophylaxis: Continue GI and DVT prophylaxis Code Status: Full Resuscitation Disposition: TBD Other: Total patient care time exceeds 35 minutes excluding all procedures. Supervising physician: WENDY Ponce AGACNP Apr 23, 2024 20:59
[2024-04-23] MEDS: ASPIRIN 81MG CHEW TAB PO SCH (21:20)
[2024-04-23] MEDS: metOPROLol sucCINATE 25 MG TAB.SR.24H PO SCH (21:20)
[2024-04-23] MEDS: finaSTERide 5 MG TABLET PO SCH (21:20)
[2024-04-23] MEDS: tamSULOsin HCL 0.4 MG CAP.ER.24H PO SCH (21:20)
[2024-04-23] MEDS: atorVAStatin 40 MG TABLET PO SCH (21:20)
[2024-04-23] MEDS: ISOSORBIDE MONO 30MG SR TAB PO SCH (21:20)
[2024-04-23 22:46] VITALS: O2SAT 98
[2024-04-23 23:56] VITALS: BP 143/62; PULSE 70; RESP 18; TEMP 97.9
[2024-04-24 04:00] VITALS: BP 138/63; PULSE 79; RESP 17; TEMP 98.3
[2024-04-24 04:08] LABS: BASOPHILS # (AUTO) 0.01 K/uL (0.00-0.20); BASOPHILS % (AUTO) 0.2 % (0.0-5.0); EOSINOPHILS # (AUTO) 0.04 K/uL (0.00-0.70); EOSINOPHILS % (AUTO) 0.7 % (0.0-8.0); HEMATOCRIT 29.5 % (42-54); IMMATURE GRANULOCYTE ABSOLUTE 0.03 K/uL (0-1); LYMPHOCYTES # (AUTO) 1.3 K/uL (1.0-4.8); LYMPHOCYTES % (AUTO) 22.9 % (21.0-51.0); MEAN CORPUSCULAR HEMOGLOBIN 30.9 pg (27.0-33.0); MEAN CORPUSCULAR HGB CONC 34.2 g/dL (32.0-36.0); MEAN CORPUSCULAR VOLUME 90.2 fL (79-99); MONOCYTES # (AUTO) 0.4 K/uL (0.1-1.0); MONOCYTES % (AUTO) 6.7 % (3.0-13.0); PLATELET COUNT (AUTO) 118 K/uL (130-400); RED BLOOD CELL COUNT(AUTO) 3.27 MIL/uL (4.50-6.20); RED CELL DISTRIBUTION WIDTH 11.9 % (11.0-15.5); WHITE BLOOD COUNT (AUTO) 5.8 K/uL (4.8-10.8)
[2024-04-24 04:23] LABS: CREATININE 1.2 mg/dL (0.5-1.3); MAGNESIUM 1.5 mg/dL (1.80-2.40); PHOSPHORUS 2.7 mg/dL (2.5-4.9); POTASSIUM 3.6 mmol/L (3.5-5.1)
[2024-04-24] MEDS: MAGNESIUM 2GM PREMIX 50ML 50 ML IV SCH (04:59)
[2024-04-24 08:00] VITALS: BP 139/62; PULSE 68; RESP 20; TEMP 97.9
[2024-04-24] MEDS ORDERED: PANTOPrazole 40 MG TAB DR PO SCH (09:00)
[2024-04-24 09:10] VITALS: O2SAT 97
[2024-04-24] MEDS: PANTOPrazole 40 MG TAB DR PO SCH (09:10)
[2024-04-24] MEDS: LoSARTan 50 MG TABLET PO SCH (09:10)
[2024-04-24] MEDS: ASCORBIC ACID 500 MG TAB PO SCH (09:10)
[2024-04-24] MEDS: RANOLAZINE 500 MG TAB.SR.12H PO SCH (09:10)
[2024-04-24 11:29] VITALS: BP 145/63; PULSE 55; RESP 18; TEMP 97.8
[2024-04-24 16:00] VITALS: BP 154/66; PULSE 60; RESP 18; TEMP 97.9
--- NOTE | 2024-04-24 21:53 | DS ---
[facility] DISCHARGE SUMMARY Date Patient Seen: Apr 24, 2024 Time of Visit: 14:45 Supervising Physician: RYNE GOLDSTEIN MD Primary Care Physician: Dr. Wade Outpatient Specialists: [ ] Inpatient Consults: BIS ADMITTED DIAGNOSES Generalized weakness with GURU present on admission DISCHARGE DIAGNOSES Acute kidney injury, POA, IMPROVED Status post fall, POA Generalized body weakness, POA Hyponatremia, POA, IMPROVED Hypomagnesemia, POA Lactic acidosis, negative for COVID and flu Hypertension, POA Hyperlipidemia, POA DM type 2, POA History of CAD s/p CABG 1995 PLAN: Admit to medical-surgical floor with telemetry VS per unit protocol Continue IV fluids Complete bedrest for now Keep SBP less than 160 Avoid nephrotoxic agents Heart healthy diet Renally dose all medications Bilateral SCDs ISS and fingerstick per unit protocol Continue IV fluids CBC, CMP, magnesium level daily HOSPITAL COURSE: Patient is a 78 year old gentleman who has been admitted with generalized weakness apparently hx of fall, noted with hyponatremia, and acute kidney injury patient has received IV hydration , doing much better, denies headaches dizziness, chest pain or SOB, denies palpitations plan is to be discharge home, advised to follow up appoint as an outpatient. CHRONIC PROBLEMS: continue previous management per PCP unless otherwise indicated PROCEDURES: as mentioned above DISCHARGE MEDICATIONS: medication list reconciled. Pt hemodynamically stable and afebrile at time of discharge. PCP notified of patients admission, hospital course and discharge. Continued Medications: Aspirin (Aspirin) 81 Mg Tab.chew 81 MG PO BID for DVT PROPHYLAXIS, #40 TAB.CHEW Atorvastatin Calcium (Atorvastatin Calcium) 80 Mg Tablet 80 MG PO HS, TAB Atorvastatin Calcium (Atorvastatin Calcium) 40 Mg Tablet 1 TAB PO HS for 30 Days, #30 TAB 0 Refills Cephalexin (Cephalexin) 500 Mg Capsule 500 MG PO BID for 7 Days, #14 CAP 0 Refills Ferrous Sulfate (Iron) 325 Mg Tablet 325 MG PO DAILY, TAB Finasteride (Finasteride) 5 Mg Tablet 5 MG PO HS, TAB Folic Acid (Folvite) 1 Mg Tab 1 MG PO DAILY, TAB Isosorbide Mononitrate (Isosorbide Mononitrate ER) 30 Mg Tab.er.24h 30 MG PO HS, TAB Isosorbide Mononitrate (Isosorbide Mononitrate ER) 30 Mg Tab.er.24h 30 MG PO HS, TAB Losartan Potassium (Losartan Potassium) 100 Mg Tablet 100 MG PO DAILY, TAB Losartan Potassium (Losartan Potassium) 50 Mg Tablet 1 TAB PO DAILY for 30 Days, #30 TAB 0 Refills Metformin HCl (Metformin HCl) 1,000 Mg Tablet 1000 MG PO DAILY, TAB Metformin HCl (Metformin HCl ER) 500 Mg [id number] 500 MG PO AM Metoprolol Succinate (Metoprolol Succinate) 25 Mg Tab.er.24h 12.5 MG PO HS, TAB Metoprolol Tartrate (Metoprolol Tartrate) 25 Mg Tablet 25 MG PO BID, TAB Multivitamin (Multivitamin) 1 Each Tablet 1 EACH PO DAILY, TAB Pantoprazole Sodium (Pantoprazole Sodium) 40 Mg Tablet.dr 40 MG PO DAILY, TAB Prasugrel HCl (Prasugrel HCl) 10 Mg Tablet 10 MG PO DAILY, TAB Ranolazine (Ranexa) 1,000 Mg Tab.er.12h 1000 MG PO BID, TAB Tamsulosin HCl (Tamsulosin HCl) 0.4 Mg Cap.er.24h 0.4 MG PO HS, CAPSULE. Tamsulosin HCl (Flomax) 0.4 Mg Cap.er.24h 0.4 MG PO DAILYDINNER, #30 CAPSULE. 2 Refills Discontinued Medications: Cephalexin Monohydrate (Keflex) 500 Mg Cap 500 MG PO QID for 10 Days, #40 CAP 0 Refills Hydrocodone/Acetaminophen (Hydrocodon-Acetaminophen 5-325) 1 Each Tablet 1-2 EACH PO Q6HPRN PRN for ACUTE POST-OP PAIN (G89.18), #56 TAB 0 Refills Tramadol HCl/Acetaminophen (Tramadol-Acetaminophn 37.5-325) 37.5 Mg-325 Mg Tablet 1 EACH PO [id number], #10 TAB 0 Refills PHYSICAL EXAM: GENERAL: alert, weak, awake oriented x 3 HEENT: EOMI, Sclera non icteric, moist mucosa NECK: Supple, no JVD, trachea midline LUNGS: Clear breath sounds bilaterally. No wheezes HEART: Regular rate and rhythm. Normal S1 and S2, without murmurs ABD: Abdomen soft, nontender. Bowel sounds present EXT: No clubbing cyanosis 1+ pitting edema bilateral lower extremity NEURO: Alert and oriented to person, follows commands FOLLOW-UP: Follow-up with PCP in 2-3 days RECOMMENDATIONS: See Discharge Instructions . More than 30 minutes spent on discharge process, including evaluation of the patient, discussion with nursing staff, medication reconciliation and follow-up appointments ATTESTATION BY PHYSICIAN Documentation assistance provided by a scribe, information recorded by the scribe was done at my direction and has been reviewed and validated by me." RYNE GOLDSTEIN MD I personally scribed for ANGELITA MICHELE MD ([email or web address]) on 04/24/24 at 21:53. Electronically submitted by Heidy Vaz ([email or web address]). ANGELITA MICHELE MD Apr 24, 2024 21:53
== END 2024-04-24 18:20 | disposition home or self-care (01) ==
LOC: EDH 14:23 → EDBD 14:23 → EDHIP 18:09 → 3BH 22:21
PROVIDERS: ADMIT Internal Medicine Critical Care Medicine; ATTEND Internal Medicine Critical Care Medicine
DX: N17.9 Acute kidney failure, unspecified (principal); Z20.822 Contact with and (suspected) exposure to COVID-19; E87.1 Hypo-osmolality and hyponatremia; E83.42 Hypomagnesemia; E87.20 Acidosis, unspecified; I12.9 Hypertensive chronic kidney disease with stage 1 through stage 4 chronic kidney disease, or unspecified chronic kidney disease; E11.22 Type 2 diabetes mellitus with diabetic chronic kidney disease; N18.9 Chronic kidney disease, unspecified; E78.5 Hyperlipidemia, unspecified; E86.0 Dehydration; I48.91 Unspecified atrial fibrillation; I25.10 Atherosclerotic heart disease of native coronary artery without angina pectoris; Z95.1 Presence of aortocoronary bypass graft; Z79.82 Long term (current) use of aspirin; Z88.8 Allergy status to other drugs, medicaments and biological substances; Z79.84 Long term (current) use of oral hypoglycemic drugs; Z79.899 Other long term (current) drug therapy; W19.XXXA Unspecified fall, initial encounter; Y93.89 Activity, other specified; Y92.098 Other place in other non-institutional residence as the place of occurrence of the external cause; Y99.8 Other external cause status
CPT/HCPCS: 96361 ×3; 96375; 99285; 82550; 83735 ×2; 84484; 80061; 80048 ×2; 83880; 85025 ×2; 85610; 87040 ×2; 87804 ×2; 82948 ×4; 83605 ×2; 87426; 81001; 36415 ×2; 71045; 93005; 96365; 96366; 84100; G0378 ×24; J7120; J0360; J1815 ×2; J3475; 96372

== ENCOUNTER → 2024-05-17 | Outpatient (CLI) | payer OTHER ==
[~2024-05-17] MED LIST changes: +ATOR40TA71 PO; -CEPH500B PO; -HYDR-4060 PO; +LOSA50TA64 PO; +METF-1150 PO; +METO-408 PO; -TRAM-543 PO
[2024-05-17 16:14] LABS: BASOPHILS # (AUTO) 0.01 K/uL (0.00-0.20); BASOPHILS % (AUTO) 0.2 % (0.0-5.0); EOSINOPHILS # (AUTO) 0.05 K/uL (0.00-0.70); EOSINOPHILS % (AUTO) 1.1 % (0.0-8.0); HEMATOCRIT 31.9 % (42-54); IMMATURE GRANULOCYTE ABSOLUTE 0.03 K/uL (0-1); LYMPHOCYTES # (AUTO) 1.2 K/uL (1.0-4.8); MEAN CORPUSCULAR HEMOGLOBIN 31.9 pg (27.0-33.0); MEAN CORPUSCULAR HGB CONC 34.2 g/dL (32.0-36.0); MEAN CORPUSCULAR VOLUME 93.3 fL (79-99); MONOCYTES # (AUTO) 0.3 K/uL (0.1-1.0); MONOCYTES % (AUTO) 7.3 % (3.0-13.0); NEUTROPHILS # (AUTO) 2.8 K/uL (1.8-7.7); NEUTROPHILS % (AUTO) 63.7 % (40.0-77.0); PLATELET COUNT (AUTO) 146 K/uL (130-400); RED BLOOD CELL COUNT(AUTO) 3.42 MIL/uL (4.50-6.20); RED CELL DISTRIBUTION WIDTH 11.8 % (11.0-15.5); WHITE BLOOD COUNT (AUTO) 4.4 K/uL (4.8-10.8)
[2024-05-17 16:40] LABS: CREATININE 1.3 mg/dL (0.5-1.3); MAGNESIUM 1.6 mg/dL (1.80-2.40); POTASSIUM 4.2 mmol/L (3.5-5.1)
== END | disposition home or self-care (01) ==
LOC: LAB 15:05
PROVIDERS: ATTEND Internal Medicine Cardiovascular Disease
DX: I10 Essential (primary) hypertension (principal)
CPT/HCPCS: 36415; 80048; 83735; 85025